=== PATIENT | female | born 1965 | race Caucasian/White ===

== ENCOUNTER 2024-02-16 20:15 | Inpatient (IN) | payer MEDICARE ==
[2024-02-17 15:47] VITALS: BP 126/73
--- NOTE | 2024-02-17 15:54 | NUR ---
PATIENT TO FLOOR FROM [place], NOTIFIED DR HEATON, NO ADMIT ORDERS YET
[2024-02-17] MEDS ORDERED: Acetaminophen 325 MG TABLET PO PRN (16:00)
[2024-02-17] MEDS ORDERED: Ondansetron HCl 2 MG / ML 2ML Vial IV PRN (16:00)
[2024-02-17] MEDS ORDERED: NS 1,000 ML IV SCH (16:00)
[2024-02-17] MEDS ORDERED: NS 1,000 ML IV ONE (16:04)
[2024-02-17] MEDS ORDERED: Ketorolac Tromethamine 15mg Vial IV PRN (16:35)
[2024-02-17] MEDS ORDERED: CefTRIAXone Sodium 1,000 MG in NS 100 ML IV SCH (18:00)
[2024-02-17] MEDS ORDERED: Thiamine HCl 100 MG Tab PO SCH (18:00)
[2024-02-17 18:35] LABS: Magnesium, Blood 2.2 mg/dL (1.6-2.4)
[2024-02-17 18:39] LABS: Thyroid Stimulating Hormone 1.81 uIU/mL (0.360-4.800)
[2024-02-17 18:40] LABS: Phosphorus, Blood 3.3 mg/dL (2.5-4.9); Potassium, Blood 3.6 mmol/L (3.5-5.5)
[2024-02-17] MEDS ORDERED: Lactobacil 2-S.Thermo-Bifido 1 1 Cap PO SCH (21:00)
[2024-02-17] MEDS ORDERED: Famotidine 20 MG Tab PO SCH (21:00)
[2024-02-17] MEDS ORDERED: Docusate Sodium 100 MG Cap PO SCH (21:00)
[2024-02-17 21:01] VITALS: BP 126/52
[2024-02-18 05:37] VITALS: BP 145/68
--- NOTE | 2024-02-18 05:46 | NUR ---
Shift Summary Pt is unable to move her BUEs d/t severe weakness, she can move her BLEs a little. She is far to weak to ambulate and is unable to feed herself or drink without assistance. She is able to swallow without issue. She is AOx4. She complains of shoulder pain which is mostly relieved by repositioning, she was also medicated with Toridol x1. Her hair was cleaned with a shower cap and combed , it was heavily matted and very dirty. Pt was very thirsty t/o the shift frequently requesting water. She has a Bass Catheter which was placed in [place] [facility] on 02/14 draining light yellow urine. Rcving NS@100.
[2024-02-18 05:54] LABS: BASOPHILS ABSOLUTE AUTO 0.05 K/mm3 (0.00-0.23); BASOPHILS PERCENT AUTO 1 % (0-2); EOSINOPHILS ABSOLUTE AUTO 0.28 K/mm3 (0.00-0.68); EOSINOPHILS PERCENT AUTO 5 % (0-6); Hematocrit 41.1 % (33.0-51.0); Hemoglobin 13.9 g/dL (11.5-16.0); IMMATURE GRAN ABSOLUTE AUTO 0.02 K/mm3 (0.00-0.10); IMMATURE GRAN PERCENT AUTO 0 % (0-1); LYMPHOCYTES ABSOLUTE AUTO 1.75 K/mm3 (0.84-5.20); LYMPHOCYTES PERCENT AUTO 30 % (21-46); MONOCYTES ABSOLUTE AUTO 0.46 K/mm3 (0.16-1.47); MONOCYTES PERCENT AUTO 8 % (4-13); Mean Corpuscular HGB 30.2 pg (26.0-34.0); Mean Corpuscular HGB Conc 33.8 g/dL (31.5-36.5); Mean Corpuscular Volume 89 fL (80-100); Mean Platelet Volume 10.6 fL (9.1-12.4); NEUTROPHILS PERCENT AUTO 56 % (41-73); Platelet Count 229 K/mm3 (150-400); RDW Coefficient Variation 12.4 % (11.7-14.2); RDW Standard Deviation 41.1 fL (35.1-46.3); Red Blood Cell Count 4.61 M/mm3 (3.80-5.20); White Blood Cell Count 5.86 K/mm3 (4.00-11.30)
[2024-02-18 06:31] LABS: Albumin, Blood 3.3 g/dL (3.4-5.0); Albumin/Globulin Ratio 1.1 (0.8-1.8); Bun/Creatinine Ratio 10.1 (12.0-20.0); Creatinine, Blood 0.6 mg/dL (0.40-1.00); Potassium, Blood 3.5 mmol/L (3.5-5.5); Total Protein, Blood 6.3 g/dL (6.4-8.2)
[2024-02-18 07:36] VITALS: BP 132/74
[2024-02-18] MEDS ORDERED: Folic Acid 1 MG TAB PO SCH (09:00)
[2024-02-18] MEDS ORDERED: Enoxaparin 40 MG/0.4 ML SYR SC SCH (09:00)
[2024-02-18] MEDS ORDERED: Potassium Chloride 20 MEQ TabCR PO ONE (12:00)
--- NOTE | 2024-02-18 12:22 | NUR ---
"Spiritual Care | Pt. Request Pt. is in bed and welcomes my visit. Pt. is pleasant. Facilitated a short life review and Pt. 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 Listen with empathy and a calming presence. Pt. verbalized that she needed help drinking watter. Assisted her with the cup and straw on her meal table. Pt. verbalized gratitude for the visit."
[2024-02-18] MEDS ORDERED: Dexamethasone Sod Phos 10 MG/ML 1ML VIAL IV ONE (14:00)
[2024-02-18 15:23] VITALS: BP 122/60
--- NOTE | 2024-02-18 16:20 | NUR ---
COBRA UPDATE IMAGES PUSHED TO [facility], FACE SHEET FAXED. IMAGES PUSHED TO [facility], NO BEDS IMAGES PUSHED TO [facility], NO BEDS IMAGES PUSHED TO [facility], FACE SHEET FAXED. IMAGES PUSHED TO [facility], FACE SHEET FAXED. IMAGES PUSHED TO [facility]. FACED SHEET FACED. [facility] NO NEUROSURGERY AVAILABLE.
--- NOTE | 2024-02-18 17:18 | NUR ---
SOFT C COLLAR PLACED AT 1430. HARD CERVICAL COLLAR PLACED AT 1700.
[2024-02-18] MEDS ORDERED: Lactated Ringer's 1,000 ML IV SCH (17:20)
--- NOTE | 2024-02-18 17:32 | NUR ---
PATIENT IS ALERT AND ORIENTED AND COOPERATIVE WITH CARE. TITRATED TO RA THIS MORNING. MIJARES IN PLACE. N/T IN BILATERAL ARMS, PATIENT STATES HER RIGHT ARM IS WORSE. THE RIGHT ARM IS COLDER TO TOUCH, DR. HEATON WAS MADE AWARE OF THIS. MRI WAS COMPLETED TODAY. NEUROSURGERY HAS BEEN CONSULTED. COBRA TRANSFER HAS BEEN INITIATED, POSSIBLE TRANSFER TO [facility]. PATIENT C/O INVOLUNTARY SPASMS IN HER BODY AND BILATERAL LOWER EXTREMITIIES. NO COMPLAINTS OF PAIN, ONLY DISCOMFORT UNTIL REPOSITIONED. BEDBATH TODAY. C-COLLAR IN PLACE. PATIENT HAS NO USE OF BUE. SHE CAN MOVE HER BLE. NEEDS ASSITANCE EATING AND DRINKING. DR. HEATON ASKED TO MAKE HER NPO AFTER 00:00 IN CASE THE PATIENT CAN TRANSFER AND HAVE A PROCEDURE. DR. HEATON STATED TO ALLOW HIGH BP. WILL CONTINUE TO MONITOR
[2024-02-18] MEDS ORDERED: Dexamethasone Sodium Phosphate 4 MG/ML 1ML Vial IV SCH (18:00)
[2024-02-18] MEDS ORDERED: NS 250 ML IV PRN (21:05)
[2024-02-18 21:24] VITALS: BP 148/75
--- NOTE | 2024-02-19 06:07 | NUR ---
Shift Summary Neck brace in place t/o the shift, pt pain level greatly improved vs last night. No pain medications needed this shift. Pt is still mostly unable to move her BUEs. I rcvd a call from [facility] asking for report and saying their neuro ICU would be in touch with us early today to make arrangements. Pt NPO since 0000 incase of procedure at [facility] today. She rcvd LR@200 x 1L. VSS, no acute changes.
[2024-02-19 07:34] VITALS: BP 145/83
[2024-02-19 14:40] VITALS: BP 136/76
[2024-02-19 15:58] VITALS: BP 136/76
[2024-02-19 16:10] VITALS: BP 136/76
--- NOTE | 2024-02-19 16:52 | NUR ---
PATIENT IS ALERT AND ORIENTED AND COOPERATIVE WITH CARE. PLAN IS TO TRANSFER TO [facility]TH[facility] NEURO ICU AT [facility] IN [place] AROUND 1700 TODAY. A VOICEMAIL WAS LEFT WITH THE PATIENT'S S/O EXPLAINING THE PLAN AND GIVING HIM THE ROOM NUMBER THAT SHE WILL BE IN. REPORT WAS GIVEN TO [facility] AT [facility]. THE PATIENT'S BELONGINGS ARE PACKED IN A BAG. THE PATIENT WAS GIVEN A BEDBATH THIS AFTERNOON, HER HAIR WAS BRUSHED. AWAITING TRANSPORT. N0 C/O PAIN. WILL CONTINUE TO MONITOR
== END 2024-02-19 17:42 | disposition short-term general hospital (02) | DRG 552 ==
LOC: MEDS 20:16 → UNDOADMOB 02-17 15:34 → MEDS 02-17 15:34
PROVIDERS: Internal Medicine; ADMIT Family Medicine
DX: M48.02 Spinal stenosis, cervical region (principal); N39.0 Urinary tract infection, site not specified; G95.20 Unspecified cord compression; F10.90 Alcohol use, unspecified, uncomplicated; E87.6 Hypokalemia; Z87.820 Personal history of traumatic brain injury; Z93.0 Tracheostomy status; F17.210 Nicotine dependence, cigarettes, uncomplicated; Z88.0 Allergy status to penicillin; Z71.51 Drug abuse counseling and surveillance of drug abuser
CPT/HCPCS: 36415; 80053; 83735; 84100; 84132; 84443; 85025; 94760; 94762; 96372; 96374; 96375; 96376; A9270; G0378; J0696; J1100; J1650; J1885; J7030; J7120